=== PATIENT | female | born 1960 | race Caucasian/White ===

== ENCOUNTER 2023-04-16 17:08 | Inpatient (IN) | payer OTHER ==
--- OUTSIDE RECORDS SUMMARY | 2023-04-16 17:12 | XMS REPORT | Continuity of Care Document ---
:1960 Author Organization [facility] Address [address] [place] [address] [address] [place] [address] Care Team Providers Name Role Phone Pcp, Patient Does Not Have A Primary Care Physician [id number] HARDY SPICER Attending Clinician Unavailable Pcp-Lab Attending Clinician Unavailable Hardy Spicer DO Attending Clinician Doctor Unassigned, [place] Attending Clinician Unavailable Promise Tejeda PA-C Attending Clinician PROMISE TEJEDA Attending Clinician Unavailable Sujit Kearns DO Attending Clinician Shirin Greer PT Attending Clinician Unavailable Remi Cuevas MD Attending Clinician REMI CUEVAS Attending Clinician Unavailable Milly Monae Attending Clinician Pob, [facility] Lab Main Attending Clinician Unavailable Anaya Munoz MD Attending Clinician Tech, [facility] Sleep Lab Attending Clinician Unavailable Luh Mehta Attending Clinician Sarina Sarkar Attending Clinician Vtc-Lab Attending Clinician Unavailable Anaya Munoz MD Admitting Clinician Payers Payer Name Policy Type Policy Number Effective Date Expiration Date S ource Problems Condition Condition Condition Status Onset Resolution Last Treating Co mments Source Name Details Category Date Date Treatment Clinician Date Screening Screening Disease Active Overview: Univers for for 06-19 Formattin ity of colorectal colorectal 00:00: g of this [place] cancer cancer 00 note Medical might be Branch different from the original. Added automatic ally from request for surgery [id number] Mixed Mixed Disease Active Univers connective connective 5-20 it y of tissue tissue 00:00: [place] disease disease 00 Medical Branch Raynaud's Raynaud's Disease Active Uni vers phenomenon phenomenon 5-20 it y of 00:00: Medical Branch Chest pain Chest pain Disease Active U nivers 5-20 ity of 00:00: Medical Branch Fibromyalg Fibromyalg Disease Active U nivers ia ia 5-20 ity of 00:00: Medical Branch Osteopenia Osteopenia Disease Active U nivers 5-20 ity of 00:00: Medical Branch Allergies, Adverse Reactions, Alerts Allergy Allergy Status Severity Reaction(s) Onset Inactive Treating Comm ents Source Name Type Date Date Clinician NO KNOWN Drug Active Univers ALLERGIE Class ity of S [facility] Social History Social Habit Start Date Stop Date Quantity Comments Source History SDCO University o f Alcohol Frequency [facility] edical Branch History SDCO University o f Alcohol Std Drinks [facility] Branch History SDCO University o f Alcohol Binge [facility] al Branch Exposure to 2023-01-07 2023-01-17 Not sure University of SARS-CoV-2 (event) 00:00:00 11:19:00 [facility] Alcohol intake 2023-01-17 2023-01-17 Current drinker Unive rsity of 00:00:00 00:00:00 of alcohol [facility] (finding) Branch Alcohol Comment 2019-07-04 2019-07-04 Daily glass of Unive rsity of 00:00:00 00:00:00 wine [facility] Cigarettes smoked 2019-06-03 2019-06-03 Univers ity of current (pack per 00:00:00 00:00:00 [facility] ) - Reported Branch Cigarette 2019-06-03 2019-06-03 University of pack-years 00:00:00 00:00:00 [facility] Tobacco use and 2019-06-03 2019-06-03 Smokeless Universit y of exposure 00:00:00 00:00:00 tobacco non-user [facility] History of tobacco 2006-10-23 Cigarette Smoker University of use 00:00:00 [facility] Sex Ass[birth year] At [birth year] Universit y of 00:00:00 00:00:00 [facility] Smoking Status Start Date Stop Date Source Ex-smoker 2019-06-03 00:00:00 2019-06-03 00:00:00 [facility] Medications Ordered Filled Start Stop Current Ordering Indication Dosage Frequency Signature Comments Components Source Medication Medication Date Date Medication? Clinician (SIG) Name Name hydrOXYchlo 2022-0 Yes [id number] 200mg Take 1 Univers roQUINE 200 3-28 tablet by ity of mg tablet 00:00[place] the Medical morning Branch and 1 tablet in the evening. HYDROXYCHLO 2-0 Yes [id number] TAKE 1 Univers ROQUINE 200 6-28 TABLET BY ity of mg tablet 00:00: MOUTH 2 [place] 00 TIMES Medical DAILY WITH Branch FOOD HYDROXYCHLO 2021-0 Yes [id number] TAKE 1 Univers ROQUINE 200 6-28 TABLET BY ity of mg tablet 00:00: MOUTH 2 [place] 00 TIMES Medical DAILY WITH Branch FOOD HYDROXYCHLO 2021-0 Yes [id number] TAKE 1 Univers ROQUINE 200 6-28 TABLET BY ity of mg tablet 00:00: MOUTH 2 [place] 00 TIMES Medical DAILY WITH Branch FOOD HYDROXYCHLO 2021-0 Yes [id number] TAKE 1 Univers ROQUINE 200 6-28 TABLET BY ity of mg tablet 00:00: MOUTH 2 [place] 00 TIMES Medical DAILY WITH Branch FOOD HYDROXYCHLO 2-0 Yes [id number] TAKE 1 Univers ROQUINE 200 6-28 TABLET BY ity of mg tablet 00:00: MOUTH 2 [place] 00 TIMES Medical DAILY WITH Branch FOOD HYDROXYCHLO 2-0 Yes [id number] TAKE 1 Univers ROQUINE 200 6-28 TABLET BY ity of mg tablet 00:00: MOUTH 2 [place] 00 TIMES Medical DAILY WITH Branch FOOD HYDROXYCHLO 2-0 Yes [id number] TAKE 1 Univers ROQUINE 200 6-28 TABLET BY ity of mg tablet 00:00: MOUTH 2 [place] 00 TIMES Medical DAILY WITH Branch FOOD HYDROXYCHLO 2021-0 2023- No [id number] TAKE 1 Univers ROQUINE 200 6-28 03-28 TABLET BY it y of mg tablet 00:00: 00:00 [place]OUTH 2 [place] :00 TIMES Medical DAILY WITH Branch FOOD hydrOXYchlo 2-0 Yes [id number] 200mg Take 1 Univers roQUINE 200 1-14 tablet by ity of mg tablet 00:00: mouth 2 00 (two) Medical times Branch daily. hydrOXYchlo 2022-0 Yes [id number] 200mg Take 1 Univers roQUINE 200 1-14 tablet by ity of mg tablet 00:00: mouth 2 00 (two) Medical times Branch daily. hydrOXYchlo 2022-0 Yes [id number] 200mg Take 1 Univers roQUINE 200 1-14 tablet by ity of mg tablet 00:00: mouth 2 [place] 00 (two) Medical times Branch daily. hydrOXYchlo 2-0 2- No [id number] 200mg Take 1 Univers roQUINE 200 1-14 06-28 tablet by it y of mg tablet 00:00: 00:00 mouth 2 [place] :[place] (two) Medical times Branch daily. SEMAGLUTIDE 2020-10 Yes inject Univ ers SC 2-21 under the ity of 11:28: skin. [address] phentermine 2020-10 Yes 37.5mg Take 37.5 Univers 37.5 mg 2-21 mg by ity of capsule 11:28: mouth [place] every Medical morning. Branch SEMAGLUTIDE 2020-10 Yes inject Univ ers SC 2-21 under the ity of 11:28: skin. [address] phentermine 2020-10 Yes 37.5mg Take 37.5 Univers 37.5 mg 2-21 mg by ity of capsule 11:28: mouth [place] 56 every Medical morning. Branch SEMAGLUTIDE 2020-10 Yes inject Univ ers SC 2-21 under the ity of 11:28: skin. [address] phentermine 2020-10 Yes 37.5mg Take 37.5 Univers 37.5 mg 2-21 mg by ity of capsule 11:28: mouth [place] 56 every Medical morning. Branch SEMAGLUTIDE 2020-10 Yes inject Univ ers SC 2-21 under the ity of 11:28: skin. [address] phentermine 2020-10 Yes 37.5mg Take 37.5 Univers 37.5 mg 2-21 mg by ity of capsule 11:28: mouth [place] 56 every Medical morning. Branch SEMAGLUTIDE 2020-10 Yes inject Univ ers SC 2-21 under the ity of 11:28: skin. [address] Branch phentermine 2020-10 Yes 37.5mg Take 37.5 Univers 37.5 mg 2-21 mg by ity of capsule 11:28: mouth [place] 56 every Medical morning. Branch SEMAGLUTIDE 2020-10 Yes inject Univ ers SC 2-21 under the ity of 11:28: skin. [address] Branch phentermine 2020-10 Yes 37.5mg Take 37.5 Univers 37.5 mg 2-21 mg by ity of capsule 11:28: mouth [place] 56 every Medical morning. Branch SEMAGLUTIDE 2020-10 Yes inject Univ ers SC 2-21 under the ity of 11:28: skin. [address] phentermine 2020-10 Yes 37.5mg Take 37.5 Univers 37.5 mg 2-21 mg by ity of capsule 11:28: mouth [place] 56 every Medical morning. Branch SEMAGLUTIDE 2020-10 Yes inject Univ ers SC 2-21 under the ity of 11:28: skin. [address] Branch phentermine 2020-10 Yes 37.5mg Take 37.5 Univers 37.5 mg 2-21 mg by ity of capsule 11:28: mouth [place] 56 every Medical morning. Branch SEMAGLUTIDE 2020-10 Yes inject Univ ers SC 2-21 under the ity of 11:28: skin. [address] Branch phentermine 2020-10 Yes 37.5mg Take 37.5 Univers 37.5 mg 2-21 mg by ity of capsule 11:28: mouth [place] 56 every Medical morning. Branch SEMAGLUTIDE 2020-10 Yes inject Univ ers SC 2-21 under the ity of 11:28: skin. [place] [address] Medical Branch phentermine 2020-10 Yes 37.5mg Take 37.5 Univers 37.5 mg 2-21 mg by ity of capsule 11:28: mouth [place] 56 every Medical morning. Branch SEMAGLUTIDE 2020-10 Yes inject Univ ers SC 2-21 under the ity of 11:28: skin. [place] [address] Medical Branch phentermine 2020-10 Yes 37.5mg Take 37.5 Univers 37.5 mg 2-21 mg by ity of capsule 11:28: mouth [place] 56 every Medical morning. Branch SEMAGLUTIDE 2020-10 Yes inject Univ ers SC 2-21 under the ity of 11:28: skin. [place] [address] Medical Branch phentermine 2020-10 Yes 37.5mg Take 37.5 Univers 37.5 mg 2-21 mg by ity of capsule 11:28: mouth [place] 56 every Medical morning. Branch SEMAGLUTIDE 2020-10 Yes inject Univ ers [place] 2-21 under the ity of 11:28: skin. [address] Branch phentermine 2020-10 Yes 37.5mg Take 37.5 Univers 37.5 mg 2-21 mg by ity of capsule 11:28: mouth [place] 56 every Medical morning. Branch venlafaxine Yes 75mg Take 75 mg Univers XR 75 mg 24 4-06 by mouth ity of hr capsule 16:09: daily with [place] 34 breakfast. Medical Branch venlafaxine Yes 75mg Take 75 mg Univers XR 75 mg 24 4-06 by mouth ity of hr capsule 16:09: daily with [place] breakfast. Medical Branch venlafaxine Yes 75mg Take 75 mg Univers XR 75 mg 24 4-06 by mouth ity of hr capsule 16:09: daily with [place] breakfast. Medical Branch venlafaxine Yes 75mg Take 75 mg Univers XR 75 mg 24 4-06 by mouth ity of hr capsule 16:09: daily with [place] breakfast. Medical Branch venlafaxine Yes 75mg Take 75 mg Univers XR 75 mg 24 4-06 by mouth ity of hr capsule 16:09: daily with [place] breakfast. Medical Branch venlafaxine Yes 75mg Take 75 mg Univers XR 75 mg 24 4-06 by mouth ity of hr capsule 16:09: daily with [place] breakfast. Medical Branch venlafaxine 0 Yes 75mg Take 75 mg Univers XR 75 mg 24 4-06 by mouth ity of hr capsule 16:09: daily with [place] breakfast. Medical Branch venlafaxine 0 Yes 75mg Take 75 mg Univers XR 75 mg 24 4-06 by mouth ity of hr capsule 16:09: daily with [place] breakfast. Medical Branch venlafaxine 0 Yes 75mg Take 75 mg Univers XR 75 mg 24 4-06 by mouth ity of hr capsule 16:09: daily with [place] breakfast. Medical Branch venlafaxine 0 Yes 75mg Take 75 mg Univers XR 75 mg 24 4-06 by mouth ity of hr capsule 16:09: daily with [place] breakfast. Medical Branch venlafaxine 0 Yes 75mg Take 75 mg Univers XR 75 mg 24 4-06 by mouth ity of hr capsule 16:09: daily with [place] breakfast. [facility] Branch venlafaxine 0 Yes 75mg Take 75 mg Univers XR 75 mg 24 4-06 by mouth ity of hr capsule 16:09: daily with [place] breakfast. [facility] Branch venlafaxine Yes 75mg Take 75 mg Univers XR 75 mg 24 4-06 by mouth ity of hr capsule 16:09: daily with [place] 34 breakfast. [facility] Immunizations Ordered Filled Immunization Date Status Comments [facility] e Immunization Name Name [facility] 2019-06-03 Completed University of 00:00:00 [facility] 2019-06-03 Completed University of 00:00:00 [facility] 2019-06-03 Completed University of 00:00:00 [facility] 2019-06-03 Completed University of 00:00:00 [facility] 2019-06-03 Completed University of 00:00:00 [facility] 2019-06-03 Completed University of 00:00:00 [facility] 2019-06-03 Completed University of 00:00:00 [facility] 2019-06-03 Completed University of 00:00:00 [facility] 2019-06-03 Completed University of 00:00:00 [facility] 2019-06-03 Completed University of 00:00:00 [facility] 2019-06-03 Completed University of 00:00:00 [facility] 2019-06-03 Completed University of 00:00:00 [facility] 2019-06-03 Completed University of 00:00:00 [facility] Vital Signs Vital Name Observation Time Observation Value Comments Source Systolic blood 2023-01-17 16:02:00 143 mm[Hg] rechecked Univer sity of pressure [facility] Diastolic blood 2023-01-17 16:02:00 81 mm[Hg] rechecked Unive rsity of pressure [facility] Heart rate 2023-01-17 16:02:00 78 /min Universi ty of [facility] Body temperature 2023-01-17 16:00:00 36.33 Anahi Univ ersity of [facility] Respiratory rate 2023-01-17 16:00:00 18 /min Univ ersity of [facility] Body height 2023-01-17 16:00:00 160 cm Universi ty [facility] Oxygen saturation in 2023-01-17 16:00:00 98 /min r/a University of Arterial blood by [facility] Pulse oximetry Branch Systolic blood 2022-04-13 15:54:00 119 mm[Hg] Univer sity of pressure [facility] Diastolic blood 2022-04-13 15:54:00 73 mm[Hg] Unive rsity of pressure [facility] Heart rate 2022-04-13 15:54:00 82 /min Universi ty of [facility] Body temperature 2022-04-13 15:54:00 36.28 Anahi Univ ersity of [facility] Respiratory rate 2022-04-13 15:54:00 17 /min Univ ersity of [facility] Body height 2022-04-13 15:54:00 160 cm Universi ty [facility] Body weight 2022-04-13 15:54:00 63.957 [facility] 2022-04-13 15:54:00 24.98 kg/m2 [facility] Procedures Procedure Date / Time Performing Clinician Source Performed [facility] STATEMENT OF PATIENT 2022-04-13 05:01:00 Doctor Unassigned, [facility] FINANCIAL RESPONSIBILITY [place] [facility] Encounters Start End Encounter Admission Attending Care Care Encounter Source Date/Time Date/Time Type Type Clinicians Facility Department ID 2023-01-17 2023-01-17 Civil Engineer In Training Pcp-Lab [facility] 1.2.840.114 [id number] [facility] 13:45:00 14:00:00 Visit Hardy Spicer 350.1.13.10 ity of C[place] [id number] Pa dical [address] 2023-01-17 2023-01-17 Outpatient R DANNIELLE [facility] [id number] Univers 13:45:00 13:45:00 HARDY [facility] 2023-01-17 2023-01-17 [facility] 1.2.840.114 [id number] Univers 10:30:00 11:00:00 Visit Hardy Vee PRIMARY 350.1.13.10 ity of C[place] 4[place]2.7.2.[place] [id number] Pa dical [address] 2023-01-17 2023-01-17 Outpatient [facility] [id number] Univers 10:30:00 10:30:00 HARDY [facility] 2023-01-17 2023-01-17 Refill [facility] 1.2.840.114 [id number] Univers 00:00:00 00:00:00 Hardy Vee MULTISPEC 350.1.13.10 ity of IAL[place] 4.2[place]2.[place] [id number] [facility] AND [facility]OZCO [address] [facility] 2022-10-19 2022-10-19 Outpatient [facility] [id number] Univers 10:30:00 10:30:00 HARDY [facility] 2022-05-23 2022-05-23 [facility] 1.2.840.114 [id number] Univers 00:00:00 00:00:00 Secure Msg Hardy Vee PRIMARY 350.1.13.10 ity of CARE 4.2.7.2.[place] [id number] Pa dical [address] 2022-05-19 2022-05-19 [facility] 1.2.840.114 [id number] Univers 00:00:00 00:00:00 Hardy Mariusz PRIMARY 350.1.13.10 ity of CARE 4.2.7.2.[place] [id number] Pa dical [address] 2022-05-18 2022-05-18 [facility] 1.2.840.114 [id number] Univers 00:00:00 00:00:00 Hardy Vee MULTISPEC 350.1.13.10 ity of IALTY 4.2.[place]2.[place] [id number] [facility] AND [address] DIABETES [facility]IC 2022-04-19 2022-04-19 [facility] 1.2.840.114 [id number] Univers 00:00:00 00:00:00 Hardy Vee MULTISPEC 350.1.13.10 ity of IAL[place] 4.2.[place]2.[place] [id number] [facility] AND [address] DI[facility]ETES [facility]IC 2022-04-19 2022-04-19 Telephone [facility] 1.2.840.114 [id number] Univers 00:00:00 00:00:00 Hardy Vee PRIMARY 350.1.13.10 ity of CARE 4.2.7.2.[place] [id number] Pa dicpaolo [address] 2022-04-14 2022-04-14 Telephone DannielleILDEFONSO 1.2.840.114 [id number] Univers 00:00:00 00:00:00 Hardy Vee OLAMIDE 350.1.13.10 ity of HOSPITAL 4.2.7.2.686 Yobani as [id number] [address] 2022-04-13 2022-04-13 Civil Engineer In Training Pcp-Lab [facility] 1.2.840.114 [id number] Univers 11:45:00 12:00:00 Visit Hardy Spicer PRIMARY 350.1.13.10 ity of C[place] 4.2.[place].2.[place] [id number] [facility] [address] 2022-04-13 2022-04-13 Outpatient R DANNIELLE [facility] [id number] Univers 10:30:00 11:21:06 HARDY spence [facility] 2022-04-13 2022-04-13 Office Dannielle [facility] 1.2.840.114 [id number] Univers 10:30:00 11:21:06 Visit Hardy Mariusz PRIMARY 350.1.13.10 ity of C[place] 4.2.7.2.[place] [id number] Pa dical 086 Branch 2022-04-13 2022-04-13 Outpatient R DANNIELLE, [facility] [id number] Univers 10:40:00 10:40:00 HARDY spence [facility] 2022-04-13 2022-04-13 Orders Doctor ILDEFONSO Shah2.840.114 [id number] Univers 00:00:00 00:00:00 Only Unassigned, OLAMIDE 350.1.13.10 ity of [place] [facility] 4.2.7.2.686 Yobani as [id number] [address] 2022-02-14 2022-02-14 Patient ILDEFONSO Spicer2.840.114 [id number] Univers 00:00:00 00:00:00 Secure Msg Hardy HOOKERY 350.1.13.10 ity of HOSPITAL 4.2.7.2.686 [place]obani as [id number] [place] [address] Branch 2022-02-02 2022-02-02 Orders Doctor ILDEFONSO Shah2.840.114 [id number] Univers 00:00:00 00:00:00 Only Unassigned, OLAMIDE 350.1.13.10 ity of [place] [facility] 4.2.7.2.686 Yobani as [id number] [address] 2022-01-10 2022-01-10 Orders Doctor ILDEFONSO 1.2.840.114 [id number] Univers 00:00:00 00:00:00 Only Unassigned, OLAMIDE 350.1.13.10 ity of [place] [facility] 4.2.7.2.686 Yobani as [id number] [facility] [address] 2021-11-15 2021-11-15 Orders Doctor ILDEFONSO Shah2.840.114 [id number] Univers 00:00:00 00:00:00 Only Unassigned, OLAMIDE 350.1.13.10 ity of [place] [facility] 4.2.7.2.686 Yobani as [id number] [address] 2021-11-05 2021-11-05 [facility]ill [facility] 1.2.840.114 [id number] Univers 00:00:00 00:00:00 Hardy Vee MULTISPEC 350.1.13.10 ity of I[place] 4.2[place]2.[place] [id number] [facility] AND [place] [address] DIABETES [facility]INIC 2021-10-12 2021-10-12 Civil Engineer In Training Pcp-Lab [facility] 1.2.840.114 [id number] Univers 13:15:00 13:30:00 Visit Hardy Spicer PRIMARY 350.1.13.10 ity of C[place] 4[place]2.[place] [id number] Pa dic[address] 2021-10-12 2021-10-12 Outpatient [facility] [id number] Univers 10:40:00 11:37:33 [facility] 2021-10-12 2021-10-12 [facility] 1.2.840.114 [id number] Univers 10:40:00 11:37:33 Visit Hardy Vee PRIMARY 350.1.13.10 ity of C[place] 4[place]2.[place]2.[place] [id number] [address] 2021-10-12 2021-10-12 Outpatient [facility] [id number] Univers 10:40:00 11:37:33 HARDYKOBY spence [facility] 2021-10-12 2021-10-12 Orders Doctor FREGOSO 1.2.840.114 [id number] Univers 00:00:00 00:00:00 Only Unassigned, OLAMIDE 350.1.13.10 ity of [place] [facility] 4.2.7.2.686 Yobani as [id number] [facility] 009 Branch 2021-09-28 2021-09-28 Outpatient [facility] [id number] Univers 08:20:00 08:20:00 HARDY spence [facility] 2021-09-27 2021-09-27 [facility]ill [facility] 1.2.840.114 [id number] Univers 00:00:00 00:00:00 Hardy Mariusz MULTISPEC 350.1.13.10 ity of I[place].2[place] [id number] [facility] AND [address] DIABETES [facility]INIC 2021-03-10 2021-03-10 Refill [facility] 1.2.840.114 [id number] Univers 00:00:00 00:00:00 Hardy Mariusz MULTISPEC 350.1.13.10 ity [place] I[place] 4.2[place]7.2.[place] [id number] [address] DIABETES CLINIC 2021-02-02 2021-02-02 [facility] 1.2.840.114 [id number] Univers 10:41:12 23:59:00 Encounter Promise DIAZ 350.1.13.10 ity of CARE 4.2.7.2.[place] AT [id number] [address] 2021-02-02 2021-02-02 Outpatient [facility] [id number] Univers 00:00:00 00:00:00 PROMISE spence [facility] 2021-01-26 2021-01-26 Civil Engineer In Training Pcp-Lab [facility] 1.2.840.114 [id number] Univers 16:25:54 16:40:54 Visit Hardy Spicer PRIMARY 350.1.13.10 ity of C[place] 4.2.7.2.[place] [id number] [address] 2021-01-26 2021-01-26 Office [facility] 1.2.840.114 [id number] Univers 15:55:55 16:27:15 Visit Hardy Mariusz PRIMARY 350.1.13.10 ity of C[place] 4.2.7.2.[place] [id number] [address] 2021-01-26 2021-01-26 Outpatient [facility] [id number] Univers 16:00:00 16:00:00 HARDY spence [facility] 2021-01-02 2021-01-02 [facility] 1.2.840.114 [id number] Univers 00:00:00 00:00:00 Outreach Sujit JOEL 350.1.13.10 i ty of [facility] 4.2.7.2.[place] [id number] Pa dical [address] Branch 2020-12-03 2020-12-03 Outpatient [facility] [id number] Univers 09:40:00 09:40:00 HARDY spence [facility] 2020-12-03 2020-12-03 Refill [facility] 1.2.840.114 [id number] Univers 00:00:00 00:00:00 Hardy Vee MULTISPEC 350.1.13.10 ity of IAL[place] 4.2[place].2.[place] [id number] [facility] AND [address] DIABETES CLINIC 2020-11-25 2020-11-25 Refill [facility] 1.2.840.114 [id number] Univers 00:00:00 00:00:00 Hardy ROSAPEC 350.1.13.10 ity of IAL[place] 4.2[place]7.2.[place] [id number] [facility] AND [address] DI[facility]ETES [facility]INIC 2020-10-27 2020-10-27 Ancillary Shirin Greer [facility] 1 .2.840.114 [id number] Univers 13:06:52 15:02:47 Visit Remi Cuevas 350.1.13.10 ity of [place] 4.2.7.2.[place] Profess[place] [id number] Pa dical nal [address] 2020-10-27 2020-10-27 Outpatient R [facility] [id number] Univers 13:40:00 13:40:00 itnishant [facility] 2020-10-13 2020-10-13 Outpatient R MASON [facility] [id number] Univers 08:00:00 08:00:00 [facility] 2020-09-10 2020-09-10 Telephone [facility] 1.2.840.114 [id number] Univers 00:00:00 00:00:00 Hardy Vee MULTISPEC 350.1.13.10 ity [place]2.[place] [id number] [address] DIABETES CLINIC 2020-09-04 2020-09-04 Telephone Eric, [facility] 1.2.191.875 [id number] Univers 00:00:00 00:00:00 Milly A [facility] 350.1.13.10 i ty of [place] 4.2.7.2.686 Yobani as Professio [phone] Pa dical nal [address] 2020-09-03 2020-09-03 Patient Doctor [facility] 1.2.840.114 [id number] Univers 00:00:00 00:00:00 Secure Msg Unassigned, MULTISPEC 350.1.13.10 ity of [place] IALTY 4.2.7.2.[place] [id number] [address] DIABETES CLINIC 2020-09-03 2020-09-03 Orders Doctor ILDEFONSO 1.2.840.114 [id number] Univers 00:00:00 00:00:00 Only Unassigned, OLAMIDE 350.1.13.10 ity of [place] [facility] 4.2.7.2.686 Yobani as [phone] [address] 2020-09-02 2020-09-02 Telephone Dannielle [facility] 1.2.840.114 [id number] Univers 00:00:00 00:00:00 Hardy Vee MULTISPEC 350.1.13.10 [place] [phone] [address] [facility] 2020-07-22 2020-07-22 Refill Dannielle, [facility] 1.2.840.114 [id number] Univers 00:00:00 00:00:00 Hardy Vee MULTISPEC 350.1.13.10 [place] [phone] [address] [facility] 2020-07-07 2020-07-07 Refill Dannielle, [facility] 1.2.840.114 [id number] Univers 00:00:00 00:00:00 Hardy Vee MULTISPEC 350.1.13.10 [place] [phone] [facility] AND [address] [facility] 2020-06-26 2020-06-26 [facility] 1.2.840.114 [id number] Univers 00:00:00 00:00:00 Hardy Vee MULTISPEC 350.1.13.10 [place] [phone] [facility] AND [address] [facility] 2020-06-04 2020-06-04 Outpatient R DANNIELLE [facility] [id number] Univers 10:20:00 10:20:00 HARDY [facility] 2020-06-04 2020-06-04 [facility]ici [facility] 1.2.840.114 [id number] Univers 08:06:32 08:26:32 ne Visit Hardykoby ROSAPEC 350.1.13.10 [place] [phone] [address] [facility] 2020-04-07 2020-04-07 [facility] 1.2.840.114 [id number] Univers 00:00:00 00:00:00 Hardy Mariusz ROSAPEC 350.1.13.10 [place] [phone] [address] [facility] 2020-04-03 2020-04-03 Civil Engineer In Training Jil, Kendy Lab Main [facility] 1.2.8 40.114 [id number] Univers 11:22:58 11:37:58 Visit Hardy Spicer [place] 350.1.13.1 0 [place] [phone] [address] 2020-04-03 2020-04-03 Outpatient R DANNIELLE [facility] [id number] Univers 11:15:00 11:15:00 HARDY spence [facility] 2020-04-03 2020-04-03 Orders Doctor ILDEFONSO 1.2.840.114 [id number] Univers 00:00:00 00:00:00 Only Unassigned, OLAMIDE 350.1.13.10 ity of [facility] 4.2.7.2.686 Yobani as [phone] [address] 2020-04-02 2020-04-02 Refill [facility] 1.2.840.114 [id number] Univers 00:00:00 00:00:00 Hardy Vee MULTISPEC 350.1.13.10 [place] [phone] [address] DIABETES [facility] 2020-02-25 2020-02-25 [facility] 1.2.840.114 [id number] Univers 00:00:00 00:00:00 Hardy Vee MULTISPEC 350.1.13.10 [place] [phone] [address] DIABETES [facility] 2020-01-21 2020-01-21 [facility] 1.[facility].840.114 [id number] Univers 00:00:00 00:00:00 Hardy Vee MULTISPEC 350.1.13.10 [place] [id number] [address] [facility] 2020-01-20 2020-01-20 Refill [facility] 1.2.840.114 [id number] Univers 00:00:00 00:00:00 Hardy Vee MULTISPEC 350.1.13.10 [place] [phone] [address] [facility] 2020-01-10 2020-01-10 Patient [facility] 1.2.840.114 [id number] Univers 00:00:00 00:00:00 Secure Msg Hardy Vee MULTISPEC 350.1.13.10 [place] [id number] [address] [facility] 2020-01-10 2020-01-10 Patient Dannielle, [facility] 1.2.840.114 [id number] Univers 00:00:00 00:00:00 Secure Msjosi Vee MULTISPEC 350.1.13.10 [place] [phone] [address] [facility] 2019-07-09 2019-07-09 Hospital [facility] 1.2.840.114 [id number] Univers 07:18:00 10:30:00 Encounter Anaya Straneg 350.1.13.10 [place] [phone] [place] [id number] [place] 2019-07-09 2019-07-09 Orders Doctor ILDEFONSO 1.2.840.114 [id number] Univers 00:00:00 00:00:00 Only Unassigned, OLAMIDE 350.1.13.10 ity of [place] [facility] 4.2.7.2.686 Yobani as [phone] [facility] [address] 2019-07-05 2019-07-05 [facility]phone [facility] 1.2.728.763 [id number] Univers 00:00:00 00:00:00 Milly Ken 350.1.13.10 i ty of [place] 4.2.7.2.686 [place] as Professio [phone] [facility] [address] [place] [address] 2019-06-26 2019-06-26 Civil Engineer In Training Tech, [facility] Lab [facility] 1.2 .840.114 [id number] Univers 10:01:44 10:16:44 Visit Luh Mehta 350.1.13. 10 [place] [phone] [facility] [address] 2019-06-19 2019-06-19 Office Gramm, [facility] 1.2.840.114 [id number] Univers 10:14:29 10:18:38 Visit Sarina Strange 350.1.13.10 [place] [phone] Pa dical nal [address] [facility] 2019-06-19 2019-06-19 Prep For Jc [facility] 1.2.840.114 [id number] Univers 00:00:00 00:00:00 Surgery Sarina Desir [place] 350.1.13.10 [place] [phone] [facility] [address] [facility] 2019-06-18 2019-06-18 Telephone Jc [facility] 1.2.868.651 [id number] Univers 00:00:00 00:00:00 Sarina Desir [place] 350.1.13.10 [place] [phone] [address] 2019-06-06 2019-06-06 Telephone Dannielle [facility] 1.2.840.114 [id number] Univers 00:00:00 00:00:00 Hardy Vee PRIMARY 350.1.13.10 ity [place] [id number] [address] 2019-06-05 2019-06-05 Telephone Dannielle [facility] 1.2.840.114 [id number] Univers 00:00:00 00:00:00 Hardy Vee MULTISPEC 350.1.13.10 [place] [phone] Tobi Ring [address] [place] [facility] 2019-06-03 2019-06-03 Office Eric, [facility] 1.2.840.114 [id number] Univers 09:55:16 10:40:27 Visit Milly Desir Kosmix 350.1.13.10 i ty of [place] 4.2.7.2.686 [place] Professio [phone] [facility] [address] [place] [address] 2019-06-03 2019-06-03 Orders Doctor ILDEFONSO 1.2.840.114 [id number] Univers 00:00:00 00:00:00 Only Unassigned, OLAMIDE 350.1.13.10 ity of [place] [facility] 4.2.7.2.686 Yobani as [phone] [facility] [address] 2019-05-30 2019-05-30 Civil Engineer In Training Vtc-Lab [facility] 1.2.840.114 [id number] Univers 11:04:27 11:19:57 Visit Hardy SpicerPEC 350.1.13. 10 ity of [place] 4.2.7.2.686 [facility] [employer] [phone] [facility] [address] [place] [facility] 2019-05-30 2019-05-30 Office MINDI Spicer 1.2.840.114 [id number] Univers 10:32:35 11:05:03 Visit Hardy ROSAPEC 350.1.13.10 ity of [place] 4.2.7.2.686 [facility] [phone] [address] [facility]IC Results This patient has no known results.
[2023-04-16] MEDS ORDERED: ALPRAZOLAM 0.25 MG TABLET PO PRN (17:16)
[2023-04-16] MEDS ORDERED: ONDANSETRON 4 MG/2 ML VIAL IV PRN (17:16)
[2023-04-16] MEDS ORDERED: ACETAMINOPHEN 500 MG TAB PO PRN (17:16)
[2023-04-16 17:41] VITALS: BMI 30.7
[2023-04-16] MEDS ORDERED: FENTANYL 75 MCG/PATCH TD ONE (17:48)
[2023-04-16] MEDS ORDERED: NA CHLORIDE 0.9% 1,000 ML IV SCH (18:00)
[2023-04-16] MEDS: Ringers Lactate 1,000 ML IV SCH (18:00)
[2023-04-16] MEDS: HYDROMORPHONE HCL 1 MG/ML INJ IV SCH ×2 (18:00→21:00)
[2023-04-16 18:03] LABS: Absolute Lymphocytes (CBC) 1.2 K/uL (0.7-4.9); Hematocrit 44.7 % (36.0-45.0); Lymphocytes % 22.4 % (15.3-44.8); MCV 94.6 fL (80-100); MPV 8.1 fL (7.6-11.3); RBC Red Blood Cell Count 4.73 M/uL (3.86-4.86)
[2023-04-16 18:24] LABS: Albumin 3.3 g/dL (3.4-5.0); Bilirubin Total 0.5 mg/dL (0.2-1.0); Potassium 3.6 mEq/L (3.5-5.1); Protein, Total 6.8 g/dL (6.4-8.2)
--- NOTE | 2023-04-16 20:28 | RAD REPORT ---
EXAM DESCRIPTION: US - Abdomen Exam Complete - 04/16/2023 8:12 pm CLINICAL HISTORY: Abdominal pain. abdominal pain COMPARISON: No comparisons FINDINGS: The liver is normal in size, shape and echotexture. No focal liver lesions or intrahepatic biliary dilatation is seen. Gallbladder wall is edematous. No gallbladder stones seen. Common bile duct is normal in caliber lorrie suring 5 millimeters. Both kidneys are normal in size, shape and echotexture. No hydronephrosis, focal lesion of concern or perinephric fluid. The spleen is normal in size measuring 9 cm. The pancreas and aorta are obscured by bowel gas. The visualized aspects of the IVC are grossly normal. Trace ascites. IMPRESSION: Edematous gallbladder wall noted.
[2023-04-16] MEDS: TEMAZEPAM 15 MG CAP PO PRN (21:03)
[2023-04-17] MEDS ORDERED: FENTANYL CITR 100 MCG/2 ML IV PRN
[2023-04-17] MEDS: Ringers Lactate 1,000 ML IV SCH ×3 (01:52→18:16)
[2023-04-17] MEDS: HYDROMORPHONE HCL 1 MG/ML INJ IV SCH ×6 (03:00→15:00)
[2023-04-17 03:58] LABS: Absolute Lymphocytes (CBC) 1.7 K/uL (0.7-4.9); Hematocrit 39.1 % (36.0-45.0); Lymphocytes % 36.2 % (15.3-44.8); MCV 92.8 fL (80-100); MPV 8.6 fL (7.6-11.3); RBC Red Blood Cell Count 4.21 M/uL (3.86-4.86)
[2023-04-17 04:30] LABS: Albumin 2.9 g/dL (3.4-5.0); Bilirubin Total 0.5 mg/dL (0.2-1.0); Phosphorus 3.1 mg/dL (2.5-4.9); Potassium 3.4 mEq/L (3.5-5.1); Protein, Total 5.9 g/dL (6.4-8.2)
[2023-04-17] MEDS: KCL 20 MEQ/100 mL IVPB 20 MEQ/100 ML BAG IV SCH ×2 (06:28→09:00)
--- NOTE | 2023-04-17 07:40 | P.HP ---
Certification for Inpatient Patient admitted to: Inpatient With expected LOS: >2 Midnights Patient will require the following post-hospital care: None Practitioner: I am a practitioner with admitting privileges, knowledge of patient current condition, hospital course, and medical plan of care. Services: Services provided to patient in accordance with Admission requirements found in Title 42 Section 412.3 of the Code of Federal Regulations Patient History Date of Service: 04/16/23 Allergies No Known Allergies Allergy (Unverified 04/16/23 17:28) Home Medications: Hydroxychloroquine Sulfate [Plaquenil] 200 mg PO DAILY 04/16/23 Phentermine HCl [Adipex-P] 37.5 mg PO DAILY 04/16/23 Semaglutide [Ozempic] 2 mg IM EVERY 7TH DAY 04/16/23 Venlafaxine HCl 75 mg PO DAILY 04/16/23 - Past Medical/Surgical History -: fibromyalgia -: connective tissue disorder -: reynauds -: sleep apnea -: csection x4 -: tummy tuck -: tubal reversal - Social History Smoking Status: Never smoker Alcohol use: Yes Caffeine use: Yes Place of Residence: Home Physical Examination - Vital Signs Temperature: 97.5 F Blood Pressure: 104/54 Pulse: 73 Respirations: 18 Pulse Ox (%): 98 - Studies Laboratory Data (last 24 hrs) 04/17/23 02:27: Sodium 139, Potassium 3.4 L, BUN 10, Creatinine 0.61, Glucose 84, Phosphorus 3.1, Magnesium 2.0, Total Bilirubin 0.5, AST 25, ALT 38, Alkaline Phosphatase 58, Lipase 487 H 04/17/23 02:27: WBC 4.60, Hgb 13.1 D, Hct 39.1, Plt Count 206 04/16/23 17:39: Sodium 140, Potassium 3.6, BUN 13, Creatinine 0.72, Glucose 101, Total Bilirubin 0.5, AST 33, ALT 48, Alkaline Phosphatase 68, Lipase 2396 H 04/16/23 17:39: WBC 5.20, Hgb 14.3, Hct 44.7, Plt Count 212 Assessment & Plan - Advance Directives Does patient have a Living Will: No Does patient have a Durable POA for Healthcare: No
[2023-04-17] MEDS: ENOXAPARIN 40 MG/0.4 ML SQ SCH (08:20)
--- NOTE | 2023-04-17 09:24 | RAD REPORT ---
EXAM DESCRIPTION: MRI - Cholangiogram - 04/17/2023 8:43 am CLINICAL HISTORY: gall stones COMPARISON: Abdomen Exam Complete dated 04/16/2023 TECHNIQUE: Multiplanar multisequence MRI of the abdomen, obtained without IV contrast, with MRCP p rotocol. FINDINGS: Gallbladder wall edema with mild pericholecystic fluid. No filling defects within the gall bladder lumen to suggest cholelithiasis. Common bile duct is within normal in caliber, 4 millimeter. Mild fold or tortuosity near the end pull -up, without evidence of stricture or endoluminal lesion. No appreciable common duct calculi. Main pancreatic duct is within normal in caliber. Bilobed cystic lesion within the pancreatic head, with measuring 11 x 4 millimeter. Small right renal parapelvic cysts. No suspicious hepatic focal lesions. Sub centimeter peripheral right liver lobe cysts, up to 6 millim eter in greatest dimension, likely benign, although not fully characterized. No intrahepatic biliary ductal dilation. The visualized aspects of the spleen and adrenal glands are unremarkable. Visualized bowel and the lung bases are unremarkable. IMPRESSION: Gallbladder wall edema with mild pericholecystic fluid. Please correlate clinically for acute cholecystitis. No evidence of gallbladder or common duct stones. No evidence of intra or extrahepatic biliary ductal dilation. Incidentally noted small bilobed cyst in the pancreatic head, measuring 11 millimeter. This is likely benign, however follow-up MRI with contrast evaluation in 12 months is recommended to ensure stabili ty.
--- NOTE | 2023-04-17 11:43 | P.PN ---
Date of Service: 04/17/23 Subjective: ROS: 10 point ROS as noted above, otherwise negative Physical Exam: GEN: Alert, oriented, NAD HEENT: Normal conjunctiva, sclera anicteric CV: Regular rate & rhythm, no edema Pulm: Nonlabored respiraitons on room air ABD: Soft, nontender, nondistended MSK: No joint tenderness Integumentary: No rashes Neuro: Normal speech, normal affect vitals reviewed Problem List: abdominal u/s (04/16): Edematous gallbladder MRCP (04/17): Gallbladder wall edema with mild pericholecystic fluid. Please correlate clinically for acute cholecystitis. No evidence of gallbladder or common duct stones. No evidence of intra or extrahepatic biliary ductal dilation. Incidentally noted small bilobed cyst in the pancreatic head, measuring 11 millimeter. This is likely benign, however follow-up MRI with contrast evaluatio n in 12 months is recommended to ensure stability GI consulted - Dr. Irene NPO PRN pain meds VTE: Lovenox Code: Full Dispo: Home
[2023-04-17 12:36] LABS: Specific Gravity 1.012 (1.005-1.030); Urine Bacteria None Seen /HPF (<20); Urine Bilirubin NEGATIVE (Negative); Urine Blood Negative (Negative); Urine Clarity Clear (Clear); Urine Color Light-Yellow (Yellow); Urine Glucose NEGATIVE (Negative); Urine Protein NEGATIVE (Negative); Urine RBC <5 /HPF (None Seen); Urine Urobilinogen Normal (Normal); Urine pH 6.5 (5.0-7.0)
[2023-04-17] MEDS ORDERED: HYDROMORPHONE HCL 1 MG/ML INJ IV PRN (15:09)
[2023-04-17] MEDS: TEMAZEPAM 15 MG CAP PO PRN (21:14)
--- NOTE | 2023-04-17 22:24 | P.PN ---
Subjective Date of Service: 04/17/23 Chief Complaint: Pancreatitis, CECILIA pain Subjective: New changes (U/S abdomen - edematous gallbladder. MRCP - no gallstones, normal CBD, +pericholecystic fluid and gallbladder wall edema, and 1.1 cm bilobed cyst in the head of pancreas (cause of pancreatitis?). Lipase has decreased from 2396 to 487 overnight.) Physical Examination - Vital Signs Temperature: 97.6 F Blood Pressure: 115/61 Pulse: 73 Respirations: 17 Pulse Ox (%): 100 - Studies Laboratory Data (last 24 hrs) 04/17/23 17:05: Potassium 3.3 L 04/17/23 02:27: Sodium 139, Potassium 3.4 L, BUN 10, Creatinine 0.61, Glucose 84, Phosphorus 3.1, Magnesium 2.0, Total Bilirubin 0.5, AST 25, ALT 38, Alkaline Phosphatase 58, Lipase 487 H 04/17/23 02:27: WBC 4.60, Hgb 13.1 D, Hct 39.1, Plt Count 206 Assessment And Plan - Current Problems (Diagnosis) (1) Pancreatitis Current Visit: Yes Status: Acute Comment: Possibly due to non visible bile crystals / sludge with findings c/w cholecystitis on U/S abdomen and MRCP. Also consider 1.1 cm pancreatic cyst in etiology though less likely. (2) Epigastric abdominal pain Current Visit: Yes Status: Acute (3) Nausea Current Visit: Yes Status: Acute (4) Abnormal ultrasound of abdomen Current Visit: Yes Status: Acute (5) Abnormal magnetic resonance cholangiopancreatography (MRCP) Current Visit: Yes Status: Acute (6) Cyst of pancreas Current Visit: Yes Status: Acute - Plan REC: 1) consult surgery 2) increase IV fluids 3) monitor labs 4) po diet soon
[2023-04-17] MEDS ORDERED: POTASSIUM 25 MEQ EFFERV TAB PO ONE (22:30)
[2023-04-18] MEDS: Ringers Lactate 1,000 ML IV SCH ×2 (02:08→10:46)
[2023-04-18 03:43] LABS: Absolute Lymphocytes (CBC) 1.5 K/uL (0.7-4.9); Hematocrit 40.6 % (36.0-45.0); Lymphocytes % 42.5 % (15.3-44.8); MCV 93.8 fL (80-100); MPV 8.8 fL (7.6-11.3); RBC Red Blood Cell Count 4.33 M/uL (3.86-4.86)
[2023-04-18 03:58] LABS: Albumin 3.1 g/dL (3.4-5.0); Bilirubin Total 0.5 mg/dL (0.2-1.0); Potassium 4.7 mEq/L (3.5-5.1); Protein, Total 6.3 g/dL (6.4-8.2)
[2023-04-18] MEDS: ENOXAPARIN 40 MG/0.4 ML SQ SCH (08:04)
--- NOTE | 2023-04-18 08:37 | P.PN ---
Subjective Date of Service: 04/18/23 Chief Complaint: Pancreatitis, CECILIA pain Subjective: Improving (Patient is doing better still complaining of abdominal pain appears to be very comfortable scheduled for cholecystectomy today) Review of Systems Unremarkable Gastrointestinal: Abdominal Pain Physical Examination - Vital Signs Temperature: 97.3 F Blood Pressure: 102/54 Pulse: 71 Respirations: 15 Pulse Ox (%): 98 - Physical Exam General: Alert, In no apparent distress, Oriented x3 Respiratory: Clear to auscultation bilaterally Cardiovascular: No edema Gastrointestinal: Normal bowel sounds, Tenderness (Patient has mild tenderness at the right upper quadrant) Musculoskeletal: No clubbing - Studies Laboratory Data (last 24 hrs) 04/18/23 02:24: Sodium 138, Potassium 4.7 D, BUN 7, Creatinine 0.66, Glucose 88, Total Bilirubin 0.5, AST 20, ALT 38, Alkaline Phosphatase 63, Lipase 90 H 04/18/23 02:24: WBC 3.60 L, Hgb 13.2, Hct 40.6, Plt Count 221 04/17/23 17:05: Potassium 3.3 L Assessment And Plan - Current Problems (Diagnosis) (1) Pancreatitis Current Visit: Yes Status: Acute Plan: Patient is 63 years of age admitted with pancreatitis and cholecystitis he is scheduled for cholecystectomy today appears to be fairly comfortable apart from abdominal discomfort speaking in full sentences labs all unremarkable lipase level is decreasing patient's vital signs are stable afebrile no change in present therapy Qualifiers: Chronicity: acute Pancreatitis type: biliary
[2023-04-18 10:01] VITALS: O2SAT 98
--- NOTE | 2023-04-18 12:36 | P.DS ---
Admission Date: 04/16/23 Discharge Date: 04/18/23 Disposition: ROUTINE DISCHARGE Discharge Condition: FAIR Reason for Admission: Pancreatitis, CECILIA pain - Problems (1) Pancreatitis Current Visit: Yes Status: Acute Qualifiers: Chronicity: acute Pancreatitis type: biliary Brief History of Present Illness: 63 years of age admitted with pancreatitis and possible mild cholecystitis Hospital Course: Patient was seen by Dr. Sharp and Dr. Izaguirre/ was canceled as patient is on phentermine at time of discharge patient was doing well tolerated diet as chemistries all reviewed MRCP Gallbladder wall edema with mild pericholecystic fluid. Please correlate clinically for acute cholecystitis. No evidence of gallbladder or common duct stones. No evidence of intra or extrahepatic biliary ductal dilation. Incidentally noted small bilobed cyst in the pancreatic head, measuring 11 millimeter. This is likely benign, however follow-up MRI with contrast evaluation in 12 months is recommended to ensure stabilit To follow-up with general surgery in a week's time for resection Vital Signs/Physical Exam: Temp Pulse Resp BP Pulse Ox 97.3 F 71 15 102/54 L 98 04/18/23 08:37 04/18/23 08:37 04/18/23 08:37 04/18/23 08:37 04/18/23 08:37 Laboratory Data at Discharge: WBC 3.60 thou/uL (4.3-10.9) L 04/18/23 02:24 Hgb 13.2 g/dL (12.0-15.0) 04/18/23 02:24 Hct 40.6 % (36.0-45.0) 04/18/23 02:24 Plt Count 221 thou/uL (152-406) 04/18/23 02:24 Sodium 138 mEq/L (136-145) 04/18/23 02:24 Potassium 4.7 mEq/L (3.5-5.1) D 04/18/23 02:24 BUN 7 mg/dL (7-18) 04/18/23 02:24 Creatinine 0.66 mg/dL (0.55-1.02) 04/18/23 02:24 Glucose 88 mg/dL (74-106) 04/18/23 02:24 Phosphorus 3.1 mg/dL (2.5-4.9) 04/17/23 02:27 Magnesium 2.0 mg/dL (1.6-2.4) 04/17/23 02:27 Total Bilirubin 0.5 mg/dL (0.2-1.0) 04/18/23 02:24 AST 20 U/L (15-37) 04/18/23 02:24 ALT 38 U/L (13-56) 04/18/23 02:24 Alkaline Phosphatase 63 U/L (45-117) 04/18/23 02:24 Lipase 90 U/L (13-75) H 04/18/23 02:24 Home Medications: Hydroxychloroquine Sulfate [Plaquenil] 200 mg PO DAILY 04/16/23 Semaglutide [Ozempic] 2 mg IM EVERY 7TH DAY 04/16/23 Venlafaxine HCl 75 mg PO DAILY 04/16/23 Physician Discharge Instructions: Hold phentiramine before surgery Diet: Regular Followup: Dewayne Lowry MD [ACTIVE - CAN ADMIT] -
[2023-04-18 12:48] VITALS: BP 108/58; TEMP 97.5
--- NOTE | 2023-04-18 18:58 | CON ---
Date of Consultation: 04/17/2023 Brief History Of Present Illness: The patient is a 63-year-old woman, admitted on 04/16/2023 with co mplaints of worsening abdominal pain. She states that the pain began in the epigastric region with s ome radiation to the right side of her abdomen, just off center and through to her back. The pain co ntinued to get worse and progressed and when it became constant and significant, she opted to come to the emergency room with the above-stated complaints. She has never had similar episodes before in t he past. No sick contacts. No recent travel no new food exposures. She denies any significant alco hol usage and states she only drinks maybe 1-2 bottles of wine per week and occasionally less than th at. She has had some nausea associated. Since being brought to the hospital, her pain has significa ntly improved, however and almost completely resolved at this point. Past Medical History: Significant for fibromyalgia, connective tissue disorder, Raynaud disorder, sl eep apnea. Past Surgical History: Includes a tubal ligation and x4 and an abdominoplasty. Allergies: NO KNOWN DRUG ALLERGIES. Home Medications: Include Plaquenil, phentermine, Ozempic, and venlafaxine. Social History: She denies smoking. Drinks alcohol recreationally as described above. Denies recre ational drug use. Review of Systems: Ten-point review of systems other than HPI, she currently denies. Physical Examination: Vital Signs: At the time of examination; her vital signs were a BMI of 30.7. Her blood pressure was 115/61, pulse 73, respiratory rate 17, temperature 97.6, SpO2 100% on room air. General: She is awake, alert, oriented. Psychiatric: She is appropriate, conversive. HEENT: She is normocephalic. Sclerae anicteric. Mucous membranes moist. Oropharynx clear. Neck: Supple without JVD. Chest: Expansion and excursion. Cardiovascular: Regular rate and rhythm. Pulmonary: Clear to auscultation bilaterally. Abdomen: Soft, nontender, nondistended. No rebound. No guarding. No focal peritonitis. Negative psoas sign. Negative Rovsing signs. Extremities: No clubbing, cyanosis, or edema. Skin: Warm and dry. Laboratory Data: Revealed a white blood cell count of 4.6, hemoglobin 13.1, hematocrit 39.2, platele t count was 206. Her neutrophils are normal at 54%. Her sodium 139, potassium 3.4, chloride 108, ca rbon dioxide is 27, BUN 10, creatinine 0.6, glucose is 84. Her calcium was 8.5, phosphorus 3.1, magn esium 2.0, total bilirubin 0.5, direct component is not measured. AST 25, ALT 38, alkaline phosphata se is 58. Her lipase on admission was 2396, 487 during my examination. UA was essentially negative with the exception of leukocyte esterase at 75. She had imaging performed as well, which was include d an abdominal ultrasound performed on 04/16, officially read as the gallbladder wall is edematous. No gallbladder stones seen. Common bile duct is normal in caliber measuring 5 mm. There are no foca l liver lesions or intrahepatic biliary ductal dilatation seen. She additionally had an MRCP perform ed, which was officially read as well as gallbladder wall edema with mild pericholecystic fluid. No evidence of gallbladder or common duct stones. No evidence of intra or extrahepatic ductal dilatatio n. Incidentally noted a small bilobed cyst in the pancreatic head measuring 11 mm, likely benign; ho zack, followup MRI with contrast in 12 months is recommended to ensure stability. Assessment And Plan: This is a 63-year-old woman, who presents with evidence of cholecystitis with p ancreatitis, possibly gallbladder related pancreatitis. 1.IV fluid hydration. 2.N.p.o. 3.Serial abdominal exams. 4.I have explained the risks, benefits, and alternatives of laparoscopic possible open cholecystecto my with Indocyanine green including, but not limited to bleeding, infection, damage to surrounding ti ssues, need for further operative and procedures, injury to bile ducts, intestines, trouble related t o perioperative course including anesthesia related complications, blood clots, strokes, heart attack s and other unforeseen complications. In addition, the patient is on phentermine. I will discuss th e timing with the anesthesia provider as she is not currently in extremis or in a severe situation an d has significant improvement, almost complete resolution of her abdominal symptoms. We might delay her treatment to allow for phentermine clearance prior to cholecystectomy. I have explained risks, b enefits, and alternatives of the above stated plan. We will converse with Dr. Garcia to coordinate timing and discuss with the patient. Thank you for this interesting consult. GREGORY/CORNELIUS Voice ID: [id number] Report ID: [id number]
== END 2023-04-18 16:36 | disposition home or self-care (01) | DRG 444 ==
LOC: 2ND 17:08
PROVIDERS: ADMIT Hospitalist; ATTEND Internal Medicine Sleep Medicine
DX: K81.0 Acute cholecystitis (principal); K85.10 Biliary acute pancreatitis without necrosis or infection; K86.2 Cyst of pancreas; R11.2 Nausea with vomiting, unspecified; M79.7 Fibromyalgia; I73.00 Raynaud's syndrome without gangrene; G47.30 Sleep apnea, unspecified; R93.3 Abnormal findings on diagnostic imaging of other parts of digestive tract; R93.5 Abnormal findings on diagnostic imaging of other abdominal regions, including retroperitoneum; Z79.899 Other long term (current) drug therapy; Z53.8 Procedure and treatment not carried out for other reasons
CPT/HCPCS: 36415; 74181; 76700; 80053; 81001; 83690; 83735; 84100; 84132; 85025; J1650; J3480; J7120

== ENCOUNTER 2023-04-28 08:34 | Day surgery (SDC) | payer OTHER ==
[2023-04-28] MEDS ORDERED: CEFOXITIN SODIUM 2 GM/VIAL ONE (08:47)
[2023-04-28] MEDS ORDERED: Ringers Lactate 1,000 ML IV ONE ×2 (08:47→12:40)
[2023-04-28] MEDS ORDERED: BUPIVACAINE 0.25% PF 10 ML VIAL ONE (10:15)
[2023-04-28] MEDS: BUPIVACAINE 0.25% PF 10 ML VIAL ONE ×2 (10:55→11:55)
[2023-04-28] MEDS ORDERED: propofoL 200 MG/20 ML VIAL IV ONE (10:57)
[2023-04-28] MEDS ORDERED: FENTANYL CITR 100 MCG/2 ML ONE (10:58)
[2023-04-28] MEDS ORDERED: ROCURONIUM 50 MG/5 ML VIAL IV ONE (11:00)
[2023-04-28] MEDS ORDERED: MIDAZOLAM HCL 2 MG/2 ML INJ ONE (11:00)
[2023-04-28] MEDS ORDERED: ONDANSETRON 4 MG/2 ML VIAL ONE ×2 (11:02)
[2023-04-28] MEDS ORDERED: dexAMETHasone 4 MG/ML VIAL ONE (11:02)
[2023-04-28] MEDS ORDERED: LIDOCAINE 2% MPF 5 ML VIAL ONE (11:02)
--- NOTE | 2023-04-28 12:29 | P.OP ---
Preoperative diagnosis: Cholecystitis Postoperative diagnosis: Cholecystitis Primary procedure: Laparoscopic Cholecystectomy with ICG Anesthesia: GETA + Local Estimated blood loss: <5cc Specimen: Gallbladder Findings: Floppy distended GB Complications: None Transferred to: Recovery Room Condition: Good
[2023-04-28] MEDS ORDERED: GLYCOPYRROLATE 0.2 MG/ML SYR ONE (12:37)
[2023-04-28] MEDS ORDERED: KETOROLAC 30 MG/ML INJ ONE (12:37)
[2023-04-28] MEDS ORDERED: NEOSTIGMINE 1 MG/ML -10 ML VIAL ONE (12:38)
[2023-04-28] MEDS: FENTANYL CITR 100 MCG/2 ML ONE ×2 (12:48→12:58)
[2023-04-28] MEDS: HYDROMORPHONE HCL 1 MG/ML INJ ONE ×2 (13:07→13:12)
[2023-04-28 13:23] VITALS: O2SAT 98
[2023-04-28] MEDS ORDERED: HYDROCODONE/APAP 10/325 TAB ONE (14:10)
[2023-04-28 14:32] VITALS: BP 120/60; TEMP 97
--- NOTE | 2023-04-29 00:15 | OP ---
Date of Procedure: 04/28/2023 Surgeon: Dewayne Lowry MD, Preoperative Diagnosis: Cholecystitis. Postoperative Diagnosis: Cholecystitis. Procedure: Laparoscopic cholecystectomy with indocyanine green cholangiography. Anesthesia: General endotracheal plus local with 0.25% Marcaine. Estimated Blood Loss: Less than 5 cc. Specimen: Gallbladder. Findings: A floppy distended gallbladder was noted. Complications: None. Disposition: The patient was transferred to the recovery room in good condition. Procedure In Detail: After informed consent was obtained, the patient was brought to the operating r oom, prepped and draped in the usual sterile fashion after adequate anesthesia achieved. The supraum bilical area was anesthetized with 0.25% Marcaine, sharply incised. A 5 mm trocar was placed under d irect visualization without evidence of complication. Insufflation was obtained to 15 mmHg at this t tisha. There was no injury to vital structures upon entry into the abdomen. Two additional trocars we re placed, one in the epigastrium and one in the right upper quadrant. Both of these were similarly anesthetized and sharply incised. A 5 mm trocar was placed under direct visualization without eviden ce of complication. The umbilical trocar was then upsized to a 12 mm under direct visualization with out evidence of complication. The patient was positioned head up right-side up position. A ratchete d grasper was used to grasp the patient's gallbladder and placed towards the patient's right shoulder . The colon was moved out of the way of the transverse colon in close apposition, but without adhesi ons. It was easily manipulated out of the way. I then dissected down the Lidia pouch of the gall bladder, dissecting out and skeletonizing 2 structures identified as both the cystic duct and cystic artery. A critical view of safety was obtained at this point. I then performed ICG (indocyanine gre en) cholangiography confirming the cyst at common duct junction confluence and confirming the above-d escribed anatomy. I then placed double titanium clips on the proximal side and singly on the distal side of both cystic duct and cystic artery. I then used Endo Jethro to collect these structures. Th e gallbladder was removed from the hepatic fossa without evidence of complication, placed into the En doCatch bag, and removed through the umbilical trocar, and sent off for pathologic examination. I th en re-insufflated the abdomen. At this point, I copiously irrigated the abdomen and the clips found to be in good anatomic position. No hemostatic maneuvers were required at this point. I then suctio vee out the remaining effluent. The patient was positioned back in neutral position. The remaining effluent was suctioned out. I then closed the umbilical trocar site using a Sagar-Justa suture p asser with 0 Vicryl in an interrupted fashion with good approximation of tissues. I then desufflated the abdomen under direct visualization without evidence of complication and trocars removed. All sk in incisions were then copiously irrigated and closed with a 4-0 Monocryl in a running fashion. Derm abond was placed over top. The patient tolerated the procedure well without evidence of complication and transferred to PACU in good condition. All counts were correct at the end of the case. GREGORY/CORNELIUS Voice ID: [id number] Report ID: [id number]
--- NOTE | 2023-04-29 16:23 | EKG ---
Test Date: 2023-04-27 Test Time: 14:44:47 [employer] Pilot: MACO MEASUREMENT RESULTS: Intervals: Rate: 67 SD: 146 QRSD: 80 QT: 358 QTc: 378 Nixa: P: 59 SD: 146 QRS: 21 T: 59 INTERPRETIVE STATEMENTS: Normal sinus rhythm Possible Left atrial enlargement Low voltage QRS Septal infarct, age undetermined Abnormal ECG No previous ECG available for comparison Electronically Signed On 04-29-23 16:18:54 CDT by Cortes Jacobson
== END 2023-04-28 14:25 | disposition home or self-care (01) ==
LOC: OR 08:34
PROVIDERS: ATTEND Surgery
PROC: BF50200 Other Imaging of Bile Ducts using Fluorescing Agent, Indocyanine Green Dye, Intraoperative (ICD-10-PCS; 2023-04-28)
PROC: 0FT44ZZ Resection of Gallbladder, Percutaneous Endoscopic Approach (ICD-10-PCS; principal; 2023-04-28 12:45)
DX: K80.10 Calculus of gallbladder with chronic cholecystitis without obstruction (principal)
CPT/HCPCS: 93005; 88304; 47563; J2704; J1100; J2710; J2001; J2250; J3010 ×2; J1170; J0694; J2405 ×2; J7120 ×2